=== PATIENT | male | born 1965 ===

== ENCOUNTER 2018-06-10 09:46 | Day surgery (SDC) | payer MEDICARE, MEDICAID ==
[2018-06-10] MEDS ORDERED: MIDAZOLAM HCL 2MG/2ML VIAL IV ONE (09:47)
[2018-06-10] MEDS ORDERED: FENTANYL PF 100MCG/2ML VIAL IV ONE (09:47)
[2018-06-10] MEDS ORDERED: PROPOFOL 10 MG/ML VIAL IV ONE (09:47)
[2018-06-10] MEDS ORDERED: LIDOCAINE 1% MDV (10MG/ML) 20ML VIAL SQ ONE (09:47)
--- NOTE | 2018-06-13 12:30 | Operative Note ---
DATE OF SURGERY: 06/10/2018 SURGEON: Steff Leggett MD OPERATION: ESOPHAGOGASTRODUODENOSCOPY. INDICATIONS: This is a 52-year-old male with history of mental retardation who has had persistent upper abdominal pain with nausea and occasional vomiting who presented for esophagogastroduodenoscopy. POSTOPERATIVE DIAGNOSES: 1. Distal esophagitis. 2. Mild gastritis. 3. Normal duodenum. 4. Small hiatal hernia. ANESTHESIA: Sedation is per Anesthesia. Pulse oximetry was monitored throughout the procedure to maintain O2 saturation of 90% or greater. Supplemental oxygen was administered via nasal cannula. Cardiac and vital signs were monitored throughout the duration of the procedure, and they were stable. The procedure of esophagogastroduodenoscopy and risks and benefits of the procedure, including the risk of bleeding and perforation, among others, were explained to the patient who voiced understanding and agreed to have the procedure done. Physical examination was performed, and the patient was found stable for sedation. PROCEDURE: The patient was placed in the left lateral position. Sedation was initiated. A plastic bite block was inserted into the oral cavity. The Olympus [id number] gastroscope was introduced into the oral cavity and advanced to the proximal esophagus without difficulty. The esophageal mucosa was carefully examined upon introduction of the gastroscope. The proximal and mid and distal esophageal mucosa appeared normal. In the distal esophagus there was short-segment Sawyer's mucosa for about 1.5 cm with no nodularity or any ulcerations noted. The gastroscope was then advanced into the stomach, and surveillance of the stomach revealed mild erythema along the gastric body and antrum but no ulcers were noted. The gastroscope was then advanced to the descending duodenum without difficulty. The duodenal bulb and descending duodenum appeared normal. The gastroscope was then advanced into the stomach and retroflexion was performed. There were no other lesions noted. The gastroscope was then withdrawn while carefully examining the gastric and esophageal mucosa. No other lesions noted. Multiple gastric and duodenal biopsies were obtained. The patient remained with stable vital signs. Then a Ross dilator size 60 Ukrainian was then passed into the stomach with mild resistance. The Ross dilator was then withdrawn and the procedure as terminated. The patient tolerated the procedure well without any immediate complications. He remained with stable vital signs and was transferred to the recovery room. RECOMMENDATIONS: 1. We will follow up on the biopsies. 2. He is to continue on his proton pump inhibitors and I will be happy to see him back in the office as needed. Thank you for allowing me to participate in the care of your patient. CC: Morena TUCKER
== END 2018-06-10 11:08 | disposition home or self-care (01) ==
LOC: HOP 09:46
PROVIDERS: ATTEND Internal Medicine Gastroenterology
DX: R10.10 Upper abdominal pain, unspecified (principal); R11.2 Nausea with vomiting, unspecified; K20.8 Other esophagitis; K22.70 Barrett's esophagus without dysplasia; K29.70 Gastritis, unspecified, without bleeding; K44.9 Diaphragmatic hernia without obstruction or gangrene; I10 Essential (primary) hypertension; J45.909 Unspecified asthma, uncomplicated
CPT/HCPCS: 43239; 43450; 00731; 88305; 88313; J3010